=== PATIENT | male | born 1995 | race Caucasian/White ===

== ENCOUNTER 2025-01-11 18:14 | Emergency (ER) | payer MEDICAID ==
[~2025-01-11] VITALS: Ht 172.7 cm; Wt 110.0 kg
[2025-01-11 18:18] VITALS: BP 118/58; TEMP 97.7
[2025-01-11] MEDS: DEXAMETHASONE 4MG TABLET PO ONE (19:34)
[2025-01-11] MEDS: IPRATROPIUM BROMIDE (0.02%) 0.5MG/2.5ML NEB HHN ONE (19:43)
[2025-01-11] MEDS: ALBUTEROL (0.083%) 2.5MG/3ML NEB HHN ONE (19:43)
[2025-01-11 19:45] VITALS: PULSE 80; RESP 20; O2SAT 96
[2025-01-11] MEDS ORDERED: ALBU18HF2 IH (20:04)
== END 2025-01-11 20:49 | disposition home or self-care (01) ==
LOC: ER 18:14
DX: J45.909 Unspecified asthma, uncomplicated (principal)
CPT/HCPCS: 71045; 94640; 99283; J8540; Z7610 ×3; 94070; 94664; 98960